=== PATIENT | female | born 1940 | race Caucasian/White ===

== ENCOUNTER 2024-02-27 10:23 | Inpatient (IN) ==
--- NOTE | 2024-02-15 08:41 | PAT Medication Instructions ---
Medication Instructions Date of Service February 15, 2024 Home Medications acetaminophen 325 mg tablet 325 mg PO QID PRN Pain albuterol sulfate 90 mcg/actuation aerosol inhaler 2 puff inhalation QID PRN sob amlodipine 5 mg tablet 5 mg PO QPM cyanocobalamin (vitamin B-12) 1,000 mcg tablet (Vitamin B-12) 1,000 mcg PO DAILY lactobacillus combination no.4 3 billion cell capsule (Probiotic) 3,000 mmu cells PO DAILY olmesartan 40 mg tablet 40 mg PO QAM DO NOT take the morning of surgery cyanocobalamin (vitamin B-12) 1,000 mcg tablet (Vitamin B-12) 1,000 mcg PO DAILY lactobacillus combination no.4 3 billion cell capsule (Probiotic) 3,000 mmu cells PO DAILY olmesartan 40 mg tablet 40 mg PO QAM Take morning of surgery With a small sip of water, OTHERWISE NOTHING TO EAT OR DRINK AFTER MIDNIGHT: acetaminophen 325 mg tablet 325 mg PO QID PRN Pain (if needed) albuterol sulfate 90 mcg/actuation aerosol inhaler 2 puff inhalation QID PRN sob (use if needed; please bring rescue inhaler with you to hospital day of surgery if possible) Take evening before surgery acetaminophen 325 mg tablet 325 mg PO QID PRN Pain (if needed) albuterol sulfate 90 mcg/actuation aerosol inhaler 2 puff inhalation QID PRN sob (if needed) amlodipine 5 mg tablet 5 mg PO QPM Other Notes If you have any questions please call us at [phone] or [phone] or [phone] or [phone]
--- NOTE | 2024-02-20 09:54 | Anesthesiology Consultation ---
Date of Service February 20, 2024 Assessment & Plan (1) Encounter for pre-operative examination: - awaiting surgeon ordered medical clearance (Dr. Alfred Kang). Chart Review Chart Review: Pending: Refer to Additional Notes / Consult section and Patient seen in Pre Admission Testing Teaching & Discussion Pre-Anesthesia Teaching/Discussion Notes: Instructed NPO after midnight before surgery, except medications with 15 cc of water. Medication instructions provided according to the PAT guidelines. History Surgery Operation Date: 02/27/24 12:25 Proposed Procedures p L3-L5 Decompression and Fusion, Spinal Cord Monitoring - Juan Patel DO Height/Weight Height: 5 ft 5.5 in Weight: 62.9 kg Allergies Allergy/AdvReac Type Severity Reaction Status Date / Time codeine Allergy Severe RESP Verified 02/15/24 07:35 DISTRESS HIVES tramadol Allergy Unknown Itching Verified 02/15/24 07:35 IV contrast dye Allergy Unknown tongue/lip Uncoded 02/15/24 08:21 numbness Medications Home Medications Medication Instructions Recorded Confirmed Last Taken acetaminophen 325 mg tablet 325 mg PO QID PRN Pain 02/15/24 02/15/24 Unknown albuterol sulfate 90 mcg/actuation 2 puff inhalation QID PRN sob 02/15/24 02/15/24 Unknown aerosol inhaler amlodipine 5 mg tablet 5 mg PO QPM 02/15/24 02/15/24 Unknown cyanocobalamin (vitamin B-12) 1,000 mcg PO DAILY 02/15/24 02/15/24 Unknown 1,000 mcg tablet (Vitamin B-12) lactobacillus combination no.4 3 3,000 mmu cells PO DAILY 02/15/24 02/15/24 Unknown billion cell capsule (Probiotic) olmesartan 40 mg tablet 40 mg PO QAM 02/15/24 02/15/24 Unknown cholecalciferol (vitamin D3) 25 25 mcg PO QPM 02/20/24 02/20/24 Unknown mcg (1,000 unit) tablet (Vitamin D3) Additional Notes: Patient was advised she can continue Vitamin D3 supplement as advised by surgeon's office. She denied additional medications or supplements. Past Medical History Medical History (Updated 02/20/24 @ 10:53 by Ariadna Jacobson PA-C) Atrial septal aneurysm reported on 2018 echo COPD (chronic obstructive pulmonary disease) mild; very rare use of rescue inhaler GERD (gastroesophageal reflux disease) controlled, stable per pt Hearing loss HTN (hypertension) controlled, stable per pt Hx of deep venous thrombosis (2012) left calf; treated w/ blood thinners Patient denies h/o stroke, seizures, heart attack, heart failure, DM, or blood transfusions. Exercise / Class Metabolic Activity II 4-5 Yardwork/Stairs/Walk up hill (denies chest discomfort or shortness of breath with one flight of stairs) Past Surgical History Surgical History Hx of appendectomy (08/2009) Hx of bilateral cataract extraction Hx of cervical spine surgery full ROM Hx of colonoscopy Past Anesthesia History No Hx of Anesthesia Complications and No Family Hx of Anesthesia Complications History of PONV No Hx of PONV and No Hx of Motion Sickness Social History Smoking Status: Never smoker Do You Dip or Chew Tobacco: No Hx Alcohol Use: No Hx Substance Use: No substance use type: does not use Review of Systems Patient denies chest pain, shortness of breath, dyspnea on exertion, snoring, witnessed apneas, fever, chills, cough, wheezing, or palpitations. Physical Exam Vital Signs Vitals BP 129/79 P 72 TEMP 97.9 SP02 94% on RA RESP 18 Physical Patient resting comfortably in chair in no acute distress, alert and oriented, responding appropriately throughout visit Full cervical extension range of motion without pain TMD < 3 finger breadths Mallampati Score 3 Dentition: lower partial removable, denies chipped or loose teeth, caps/crowns, implants or bridges Lungs: normal respiratory effort. Good air movement, clear throughout to auscultation, no adventitious breath sounds Cardiac: regular rate and rhythm, no murmurs noted Carotid arteries: negative bruit bilat Lab Results Anesthesia Preop Results Results Anesthesia Widget: WBC 7.38 K/ul (4.8-10.8) 02/20/24 Hgb 13.5 g/dl (12.0-16.0) 02/20/24 Hct 41.8 % (37.0-47.0) 02/20/24 Plt 268 K/uL (130-400) 02/20/24 Na 138 mmol/L (136-145) 02/20/24 K 4.4 mmol/L (3.5-5.1) 02/20/24 Cl 104 mmol/L (98-107) 02/20/24 CO2 27 mmol/L (21-32) 02/20/24 BUN 27 mg/dl (6-23) H 02/20/24 Creat 1.12 mg/dl (0.6-1.2) 02/20/24 Glucose Level 91 mg/dl (70-99(Fasting)) 02/20/24 PT 10.4 Seconds (9.0-12.0) 02/20/24 PTT 30 Seconds (21-31) 02/20/24 INR 1.0 (0.9-1.1) 02/20/24 HA1c 5.9 % (4.5-5.6) H 02/20/24 Urine Color Yellow 02/20/24 Urine Appearance Cloudy (Clear) A 02/20/24 Urine pH 6.5 (4.5-7.5) 02/20/24 Urine Specific Adrian 1.007 (1.000-1.030) 02/20/24 Urine Protein Negative (Negative) 02/20/24 Urine Glucose (UA) Negative (Negative) 02/20/24 Urine Ketones Negative (Negative) 02/20/24 Urine Blood Negative (Negative) 02/20/24 Urine Nitrite Negative (Negative) 02/20/24 Urine Bilirubin Negative (Negative) 02/20/24 Urine Urobilinogen Negative (Negative) 02/20/24 Urine Leukocyte Esterase 1+ (Negative) H 02/20/24 Urine WBC (Auto) 0-5 /hpf (0-5) 02/20/24 Urine RBC (Auto) 0-2 /hpf (0-2) 02/20/24 Urine Hyaline Casts (Auto) 0-2 /lpf (0-2) 02/20/24 Urine Epithelial Cells (Auto) 0-2 /hpf (0-2) 02/20/24 Urine Bacteria (Auto) None Seen (None Seen) 02/20/24 Blood Type O Positive 02/20/24 Antibody Screen NEGATIVE 02/20/24 Testing Electrocardiogram Date: 02/20/24 NSR, rate 70 bpm Left anterior fascicular block Minimal voltage criteria for LVH, may be normal variant Chest X-Ray Date: 02/20/24 No acute chest disease. Echocardiogram Date: 03/05/19 EF 50-54% Grade I diastolic dysfunction Mild aortic valve sclerosis, no aortic stenosis Mild mitral annular calcification Mildly enlarged proximal ascending thoracic aorta There is an atrial septal aneurysm, interatrial septum is intact without interatrial shunt, atrial septal defect or patent foramen ovale No significant changes when compared to prior study from 2018
[2024-02-27] MEDS ORDERED: LIDOCAINE 2% 2 ML VIAL/AMP(20MG/ML) INFIL ONE (10:57)
[2024-02-27] MEDS ORDERED: ONDANSETRON INJ 2 MG/ML 2 ML VIAL ONE (10:57)
[2024-02-27] MEDS ORDERED: PROPOFOL IV EMULSION 10 MG/ML 20 ML VIAL IV ONE (10:57)
[2024-02-27] MEDS ORDERED: DEXAMETHASONE SOD INJ 4 MG/ML VIAL ONE (10:57)
[2024-02-27] MEDS ORDERED: fentaNYL citrate PF 100 MCG/2 ML VIAL ONE ×2 (10:58→13:01)
[2024-02-27] MEDS ORDERED: ROCURONIUM BROMIDE 10 MG/ML 5 ML VIAL IV ONE (10:58)
[2024-02-27] MEDS: LR 60ML/HR IV SCH (11:00)
[2024-02-27] MEDS: GABAPENTIN 300 MG CAP PO SCH (11:00)
[2024-02-27] MEDS: LR 15ML/HR IV SCH (11:00)
[2024-02-27] MEDS: CeleBREX 200 MG CAP PO SCH (11:00)
[2024-02-27] MEDS ORDERED: ATROPINE SULFATE 0.1 MG/ML 10ML SYR IV PRN (11:36)
[2024-02-27] MEDS ORDERED: ePHEDrine sulfate 50 MG/ML AMP IV PRN (11:36)
[2024-02-27] MEDS ORDERED: ONDANSETRON INJ 2 MG/ML 2 ML VIAL IV PRN ×2 (11:36→16:34)
--- NOTE | 2024-02-27 11:36 | Anesthesiology Consultation ---
Date of Service February 27, 2024 Assessment & Plan ASA ASA3 Proposed Anesthesia Anesthesia Type: General Risk / Benefits Reviewed With: PT / POA / Parent / Guardian, Accepts Plan and Informed Consent Obtained History Surgery Operation Date: 02/27/24 12:10 Proposed Procedures p L3-L5 Decompression and Fusion, Spinal Cord Monitoring - Juan Patel DO Height/Weight Height: 5 ft 5.5 in Weight: 61.9 kg Allergies Allergy/AdvReac Type Severity Reaction Status Date / Time codeine Allergy Severe RESP Verified 02/27/24 10:54 DISTRESS HIVES tramadol Allergy Unknown Itching Verified 02/27/24 10:54 IV contrast dye Allergy Unknown tongue/lip Uncoded 02/27/24 10:54 numbness Medications Home Medications Medication Instructions Recorded Confirmed Last Taken acetaminophen 325 mg tablet 325 mg PO QID PRN Pain 02/15/24 02/27/24 02/26/24 14:30 albuterol sulfate 90 mcg/actuation 2 puff inhalation QID PRN sob 02/15/24 02/27/24 Unknown aerosol inhaler amlodipine 5 mg tablet 5 mg PO QPM 02/15/24 02/27/24 02/26/24 14:30 cyanocobalamin (vitamin B-12) 1,000 mcg PO DAILY 02/15/24 02/27/24 02/26/24 14:30 1,000 mcg tablet (Vitamin B-12) lactobacillus combination no.4 3 3,000 mmu cells PO DAILY 02/15/24 02/27/24 02/26/24 08:00 billion cell capsule (Probiotic) olmesartan 40 mg tablet 40 mg PO QAM 02/15/24 02/27/24 02/27/24 05:00 cholecalciferol (vitamin D3) 25 25 mcg PO QPM 02/20/24 02/27/24 02/26/24 14:30 mcg (1,000 unit) tablet (Vitamin D3) Active Medications Generic Name Dose Route Start Last Admin Trade Name Freq PRN Reason Stop Dose Admin Celecoxib 200 mg 02/27/24 06:00 02/27/24 11:00 Celebrex 200 Mg Cap PO 02/27/24 18:00 200 mg PREOP HOLLY Administration Gabapentin 300 mg 02/27/24 06:00 02/27/24 11:00 Gabapentin 300 Mg Cap PO 02/27/24 18:00 300 mg PREOP HOLLY Administration Lactated Ringer's 1,000 mls @ 15 mls/hr 02/27/24 06:00 02/27/24 11:00 Lr IV 02/28/24 05:59 15 mls/hr .Q24H HOLLY Administration Lactated Ringer's 1,000 mls @ 60 mls/hr 02/27/24 06:00 02/27/24 11:00 Lr IV 02/27/24 22:39 Not Given .[id number] HOLLY NPO Date Last Intake of Fluids: 02/26/24 Time Last Intake of Fluids: 16:45 Date Last Intake of Solids: 02/26/24 Time Last Intake of Solids: 16:45 Past Medical History Medical History (Updated 02/20/24 @ 10:53 by Ariadna Jacobson PA-C) Atrial septal aneurysm reported on 2018 echo GERD (gastroesophageal reflux disease) controlled, stable per pt Hearing loss Hx of deep venous thrombosis (2012) left calf; treated w/ blood thinners COPD (chronic obstructive pulmonary disease) mild; very rare use of rescue inhaler HTN (hypertension) controlled, stable per pt Exercise / Class Metabolic Activity II 4-5 Yardwork/Stairs/Walk up hill (denies chest discomfort or shortness of breath with one flight of stairs) Past Surgical History Surgical History Hx of bilateral cataract extraction Hx of colonoscopy Hx of cervical spine surgery full ROM Hx of appendectomy (08/2009) Past Anesthesia History No Hx of Anesthesia Complications and No Family Hx of Anesthesia Complications History of PONV No Hx of PONV and No Hx of Motion Sickness Social History Smoking Status: Never smoker Do You Dip or Chew Tobacco: No Hx Alcohol Use: No Hx Substance Use: No substance use type: does not use Physical Exam Vital Signs Last Vital Signs Temp 36.5 C 02/27/24 10:47 Pulse 86 02/27/24 10:47 Resp 20 02/27/24 10:47 BP 143/84 H 02/27/24 10:47 Pulse Ox 94 02/27/24 10:47 O2 Del Method Room Air 02/27/24 10:47 Constitutional no acute distress ENMT Mouth: no dentition abnormality Thyromental Distance: > or= 3.5 Finger Breadths Mallampati Class: II Neck normal visual inspection Respiratory normal respiratory effort; no respiratory distress Auscultation: lungs clear to auscultation bilaterally Cardiovascular Rate/Rhythm: regular rate and regular rhythm Heart Sounds: no murmur Musculoskeletal Spine: normal cervical ROM Psychiatric Orientation: alert and oriented x 3 Testing Electrocardiogram Date: 02/20/24 NSR, rate 70 bpm Left anterior fascicular block Minimal voltage criteria for LVH, may be normal variant Chest X-Ray Date: 02/20/24 No acute chest disease. Echocardiogram Date: 03/05/19 EF 50-54% Grade I diastolic dysfunction Mild aortic valve sclerosis, no aortic stenosis Mild mitral annular calcification Mildly enlarged proximal ascending thoracic aorta There is an atrial septal aneurysm, interatrial septum is intact without interatrial shunt, atrial septal defect or patent foramen ovale No significant changes when compared to prior study from 2018 Day of Procedure Evaluation. Date of Surgery February 27, 2024 Height/Weight Height: 5 ft 5.5 in Weight: 61.9 kg Vital Signs Last Vital Signs Temp 36.5 C 02/27/24 10:47 Pulse 86 02/27/24 10:47 Resp 20 02/27/24 10:47 BP 143/84 H 02/27/24 10:47 Pulse Ox 94 02/27/24 10:47 O2 Del Method Room Air 02/27/24 10:47 Allergies Allergy/AdvReac Type Severity Reaction Status Date / Time codeine Allergy Severe RESP Verified 02/27/24 10:54 DISTRESS HIVES tramadol Allergy Unknown Itching Verified 02/27/24 10:54 IV contrast dye Allergy Unknown tongue/lip Uncoded 02/27/24 10:54 numbness Medications Home Medications Medication Instructions Recorded Confirmed Last Taken acetaminophen 325 mg tablet 325 mg PO QID PRN Pain 02/15/24 02/27/24 02/26/24 14:30 albuterol sulfate 90 mcg/actuation 2 puff inhalation QID PRN sob 02/15/24 02/27/24 Unknown aerosol inhaler amlodipine 5 mg tablet 5 mg PO QPM 02/15/24 02/27/24 02/26/24 14:30 cyanocobalamin (vitamin B-12) 1,000 mcg PO DAILY 02/15/24 02/27/24 02/26/24 14:30 1,000 mcg tablet (Vitamin B-12) lactobacillus combination no.4 3 3,000 mmu cells PO DAILY 02/15/24 02/27/24 02/26/24 08:00 billion cell capsule (Probiotic) olmesartan 40 mg tablet 40 mg PO QAM 02/15/24 02/27/24 02/27/24 05:00 cholecalciferol (vitamin D3) 25 25 mcg PO QPM 02/20/24 02/27/24 02/26/24 14:30 mcg (1,000 unit) tablet (Vitamin D3) Active Medications Generic Name Dose Route Start Last Admin Trade Name Stewart PRN Reason Stop Dose Admin Celecoxib 200 mg 02/27/24 06:00 02/27/24 11:00 Celebrex 200 Mg Cap PO 02/27/24 18:00 200 mg PREOP HOLLY Administration Gabapentin 300 mg 02/27/24 06:00 02/27/24 11:00 Gabapentin 300 Mg Cap PO 02/27/24 18:00 300 mg PREOP HOLLY Administration Lactated Ringer's 1,000 mls @ 15 mls/hr 02/27/24 06:00 02/27/24 11:00 Lr IV 02/28/24 05:59 15 mls/hr .Q24H HOLLY Administration Lactated Ringer's 1,000 mls @ 60 mls/hr 02/27/24 06:00 02/27/24 11:00 Lr IV 02/27/24 22:39 Not Given .[id number] HOLLY Past Anesthesia History No Hx of Anesthesia Complications and No Family Hx of Anesthesia Complications History of PONV No Hx of PONV and No Hx of Motion Sickness NPO Date Last Intake of Fluids: 02/26/24 Time Last Intake of Fluids: 16:45 Date Last Intake of Solids: 02/26/24 Time Last Intake of Solids: 16:45 Home Medications Home Medications Medication Instructions Recorded Confirmed Last Taken acetaminophen 325 mg tablet 325 mg PO QID PRN Pain 02/15/24 02/27/24 02/26/24 14:30 albuterol sulfate 90 mcg/actuation 2 puff inhalation QID PRN sob 02/15/24 02/27/24 Unknown aerosol inhaler amlodipine 5 mg tablet 5 mg PO QPM 02/15/24 02/27/24 02/26/24 14:30 cyanocobalamin (vitamin B-12) 1,000 mcg PO DAILY 02/15/24 02/27/2424 14:30 1,000 mcg tablet (Vitamin B-12) lactobacillus combination no.4 3 3,000 mmu cells PO DAILY 02/15/24 02/27/24 02/26/24 08:00 billion cell capsule (Probiotic) olmesartan 40 mg tablet 40 mg PO QAM 02/15/24 02/27/24 02/27/24 05:00 cholecalciferol (vitamin D3) 25 25 mcg PO QPM 02/20/24 02/27/24 02/26/24 14:30 mcg (1,000 unit) tablet (Vitamin D3) Active Medications Generic Name Dose Route Start Last Admin Trade Name Freq PRN Reason Stop Dose Admin Celecoxib 200 mg 02/27/24 06:00 02/27/24 11:00 Celebrex 200 Mg Cap PO 02/27/24 18:00 200 mg PREOP HOLLY Administration Gabapentin 300 mg 02/27/24 06:00 02/27/24 11:00 Gabapentin 300 Mg Cap PO 02/27/24 18:00 300 mg PREOP HOLLY Administration Lactated Ringer's 1,000 mls @ 15 mls/hr 02/27/24 06:00 02/27/24 11:00 Lr IV 02/28/24 05:59 15 mls/hr .Q24H HOLLY Administration Lactated Ringer's 1,000 mls @ 60 mls/hr 02/27/24 06:00 02/27/24 11:00 Lr IV 02/27/24 22:39 Not Given .[id number] HOLLY Exercise / Class Metabolic Activity Metabolic Activity: II 4-5 Yardwork/Stairs/Walk up hill (denies chest discomfort or shortness of breath with one flight of stairs) Physical Exam Constitutional: no acute distress Mouth: no dentition abnormality Thyromental Distance: > or= 3.5 Finger Breadths Mallampati Class: II Neck: + visual inspection normal Respiratory: + respiratory effort normal and + clear to auscultation bilaterally; no respiratory distress Cardiovascular: + regular rate and + regular rhythm; no murmur Musculoskeletal: no limited cervical ROM Psychiatric: + alert and + oriented x 3 ASA ASA3 Proposed Anesthesia Proposed Anesthesia: General Risk / Benefits Reviewed With: PT / POA / Parent / Guardian, Accepts Plan and Informed Consent Obtained
--- NOTE | 2024-02-27 12:13 | History & Physical Bridge Note ---
Date of Service February 27, 2024 History & Physical Bridge Note I have examined the patient, reviewed the History & Physical and in the interval since the performance of the History & Physical I have noted the following changes of clinical significance: no changes noted
--- NOTE | 2024-02-27 12:14 | History & Physical Report ---
Date of Service February 27, 2024 Assessment & Plan (1) Neurogenic claudication due to lumbar spinal stenosis: Plan: L3-L5 decompression and fusion History of Present Illness Chief Complaint: Back and leg pain Primary Care Provider: Alfred Kang DO This is an 84-year-old female well-known to me the presents with chronic persistent back and leg pain after failed extensive course of nonoperative care is here for surgical intervention. Allergies Allergy/AdvReac Type Severity Reaction Status Date / Time codeine Allergy Severe RESP Verified 02/27/24 10:54 DISTRESS HIVES tramadol Allergy Unknown Itching Verified 02/27/24 10:54 IV contrast dye Allergy Unknown tongue/lip Uncoded 02/27/24 10:54 numbness Home Medications Medication Instructions Recorded Confirmed Type acetaminophen 325 mg tablet 325 mg PO QID PRN Pain 02/15/24 02/27/24 History albuterol sulfate 90 mcg/actuation 2 puff inhalation QID PRN sob 02/15/24 02/27/24 History aerosol inhaler amlodipine 5 mg tablet 5 mg PO QPM 02/15/24 02/27/24 History cyanocobalamin (vitamin B-12) 1,000 mcg PO DAILY 02/15/24 02/27/24 History 1,000 mcg tablet (Vitamin B-12) lactobacillus combination no.4 3 3,000 mmu cells PO DAILY 02/15/24 02/27/24 History billion cell capsule (Probiotic) olmesartan 40 mg tablet 40 mg PO QAM 02/15/24 02/27/24 History cholecalciferol (vitamin D3) 25 25 mcg PO QPM 02/20/24 02/27/24 History mcg (1,000 unit) tablet (Vitamin D3) Past Med/Surg History Problem List (Updated 02/27/24 @ 12:13 by Juan Patel DO) Neurogenic claudication due to lumbar spinal stenosis Encounter for pre-operative examination Medical History (Updated 02/27/24 @ 12:13 by Juan Patel DO) Atrial septal aneurysm reported on 2018 echo GERD (gastroesophageal reflux disease) controlled, stable per pt Hearing loss Hx of deep venous thrombosis (2012) left calf; treated w/ blood thinners COPD (chronic obstructive pulmonary disease) mild; very rare use of rescue inhaler HTN (hypertension) controlled, stable per pt Surgical History Hx of bilateral cataract extraction Hx of colonoscopy Hx of cervical spine surgery full ROM Hx of appendectomy (08/2009) Social History Smoking Status: Never smoker Second Hand Exposure: Yes (family smoked growing up); Do You Dip or Chew Tobacco: No; Tobacco Cessation Education Requested by Patient: No Hx Alcohol Use: No Hx Substance Use: No Preferred Language: Irish Communication Ability: Effective Papier Mache' Molder Required: No Beliefs That Will Affect Care: None Current Living Situation: Spouse Other Information That Helps Us Care for You: No Feels Safe at Home: Yes Safety Concerns: Feels Safe At This Time Assistive Devices: Denture - Upper, Denture - Lower and Glasses Assistive Devices Comment: partial Physical Exam Physical Exam: Patient is alert and oriented heart regular in rhythm lungs clear Results & Data Results & Data Vital Signs (Past 12 Hours) Vital Signs Temp Pulse Resp BP Pulse Ox O2 Del Method 02/27/24 10:47 36.5 C 86 20 143/84 H 94 Room Air
[2024-02-27] MEDS: ceFAZolin 2000MG 2,000 MG/15 ML SYR IV SCH (12:44)
[2024-02-27] MEDS ORDERED: ACETAMINOPHEN 1000 MG/100 ML IV IV ONE (13:05)
[2024-02-27] MEDS ORDERED: SUGAMMADEX SODIUM 200 MG/2 ML VIAL IV ONE (13:19)
[2024-02-27] MEDS: ceFAZolin 330 MG/ML 1 GM VIAL ONE (13:20)
[2024-02-27] MEDS: BUPIVACAINE/EPINEPHRINE 0.25% 1:200,000 30 ML VIAL ONE (13:20)
[2024-02-27] MEDS ORDERED: ePHEDrine sulfate 50 MG/ML AMP ONE (13:27)
[2024-02-27] MEDS ORDERED: SODIUM CHLORIDE 0.9% PF INJ 10 ML VIAL ONE (13:27)
[2024-02-27] MEDS: FLOSEAL HEMOSTATIC MATRIX 10ML TOP ONE (14:15)
--- NOTE | 2024-02-27 14:22 | Operative Report ---
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 #3 placed posterior instrumentation L3 L5. #4 interbody fusion L3-L4 L4-5 #5 placement spiral 12 x 26 mm at L3-L4 and 11 x 26 mm at L4-5 #6 placement locally harvested morselized autograft posterior gutters per #7 placement of infuse collagen sponge combined with Koros in the posterior lateral gutters and Morpheus bone graft in the interbody space. Surgeon Juan Patel, Director Of Maternity Services Rachel Abdalla Estimated Blood Loss 50 Findings Consistent with Post-Op Diagnosis Specimens None Indications This is an 84-year-old female who presents problems diagnosis and failed course of nonoperative care she is here for surgical invention. Description of Procedure Patient was met with identified informed consent obtained. Patient was then taken to the operative suite underwent ablation placed in a prone position on th e Joesph table on top of the David frame. All bony prominences well-padded eyes inspected to ensure no external precipice upon them. This point the lumbar spine was prepped and draped in a sterile fashion. Sharp dissection with assistance of Bovie cautery was performed down to and exposing the lamina and transverse processes of L3-L4-L5 bilaterally. From a caudal assessment fashion complete laminectomy of L4 was performed including bilateral medial facetectomies and foraminotomies addressing severe spinal stenosis. Then performed a complete laminectomy of L3 with bilateral medial facetectomies and foraminotomies again addressing severe spinal stenosis. Lastly was partial laminectomy of L2 with bilateral medial facetectomies addressing significant subarticular stenosis. Pedicle screws were then placed in L3-L4-L5 bilaterally with the assistance of fluoroscopy and proper size brien placed. By way of transforaminal approach on the right a complete discectomy of L4-5 was performed endplates corrected to subcortical bleeding bone and 11 x 26 mm spiral cage filled with Morpheus bone graft tapped in position. Then proceeded to L3 [address] and again by way of transforaminal approach and right complete discectomy performed endplates guided to subcortical bleeding bone and a 12 x 26 mm spiral cage filled with Morpheus bone graft tapped in position. The rods were then compressed locked in final position bilaterally. The transverse processes of L3 L4-5 burred to subcortical bleeding bone. Infuse collagen sponge, with Koros and local autograft placed in the posterior lateral gutters. 15 round ROVERTO inserted. The incision was then closed with 1 Vicryl the fascia 2-0 Vicryl subcutaneously and 4 Monocryl for final skin closure. Steri-Strips sterile dressing placed. Patient waken taken to PACU stable condition. Please note spinal cord monitoring was utilized at the procedure and no changes noted. Rachel Abdalla was present at the entire surgeon while the patient positioning complex portions of the surgery and final skin closure. Im ordering 20 grams of Triple [place] Collagen Powder ([employer] [id number]) to treat an incision wound that was caused by a spine procedure. The incision is approximately 2 cm(W) x 4 cm(L) into the joint (D) in size and is a full thickness wound. Triple [place] collagen comes in 1 gram packets so 20 packets were ordered. Given the size of the wound, with light to moderate exudate I chose to order a 20 day supply. The patient will be provided instructions for proper application of the collagen wound kit. The patient will be asked to apply the collagen powder daily and then cover it with sterile dressings dispensed. Collagen was selected as I expect the collagen to attract monocytes and fibroblasts, act as a sacrificial substrate for MMPs, and ultimately proved a matrix for tissue and vessel growth. The collagen will act as a primary dressing in this scenario. It is medically necessary for proper healing of these wounds to improve bioavailability and contact with each wound surface, this is also to help prevent infection of wounds and promote healing ultimately leading to a better healing outcome and limit the risk of infection. I attest to the content of the Intraoperative Record and any orders documented therein. Any exceptions are noted below.
--- NOTE | 2024-02-27 14:28 | Fluoroscopy Report ---
INTRAOPERATIVE RADIOGRAPHS CLINICAL HISTORY: L3-L4 spinal fusion. Fluoro time: 22 seconds Ka,r: 11.57 mGy FINDINGS: 2 spot fluoroscopic views of the lumbar spine are presented. There has been discectomy at L 3-L4 and L4-L5 with laminectomy and posterior fusion at L3-L5. Interpedicular screws are present at a ll levels. The orthopedic hardware appears intact. IMPRESSION: Intraoperative images from lumbar spinal fusion surgery as above. Electronically signed by: Mendoza Gomez M.D. 02/27/2024 2:27 PM
[2024-02-27] MEDS: HYDROmorphone INJ 1 MG/ML SYRINGE IV PRN (14:45)
--- NOTE | 2024-02-27 15:35 | Anesthesiology Progress Note ---
Date of Service February 27, 2024 Anesthesia Post Procedure Vital Signs Vital Signs: Temp Pulse Pulse Resp BP Pulse Ox O2 Del Method 02/27/24 15:25 93 H 22 139/76 97 Nasal Cannula 02/27/24 15:15 90 13 134/78 92 Oxymask 02/27/24 15:05 93 H 14 136/72 96 Oxymask 02/27/24 14:55 93 H 18 141/76 H 95 Oxymask 02/27/24 14:45 99 H 18 158/79 H 98 Oxymask 02/27/24 14:36 36.3 C L 112 H 16 172/80 H 99 Oxymask 02/27/24 10:47 36.5 C 86 20 143/84 H 94 Room Air O2 Flow Rate 02/27/24 15:25 3 02/27/24 15:15 4 02/27/24 15:05 3 02/27/24 14:55 3 02/27/24 14:45 6 02/27/24 14:36 6 02/27/24 10:47 Pain Intensity Bilateral Back: Pain Intensity: 5 Transfer of Care Handoff Completed per policy Notes Mental Status: alert / awake / arousable Patient Amnestic to Procedure: Yes Nausea / Vomiting: adequately controlled Pain: adequately controlled Airway Patency, RR, SpO2: stable & adequate BP & HR: stable & adequate Hydration State: stable & adequate Anesthetic Complications: no major complications apparent and Pt Satisfied with anesthetic care
[2024-02-27] MEDS ORDERED: FAMOTIDINE 20 MG TAB PO PRN (16:34)
[2024-02-27] MEDS ORDERED: PROMETHAZINE HCL 12.5 MG in SODIUM CHLORIDE 0.9% 50 ML IV PRN (16:34)
[2024-02-27] MEDS ORDERED: LORazepam 0.5 MG in SYRINGE 0.25 ML IV PRN (16:34)
[2024-02-27] MEDS ORDERED: HYDROmorphone INJ 0.5 MG/0.5 ML SYR IV PRN (16:34)
[2024-02-27] MEDS ORDERED: ALUMINUM/MAGNESIUM SUSP 30 ML UDC PO PRN (16:34)
[2024-02-27] MEDS ORDERED: SOD PHOSPHATE/SOD BIPHOSPHATE ENEMA 132 ML BTL PR PRN (16:34)
[2024-02-27] MEDS ORDERED: MAGNESIUM HYDROXIDE SUSP 30 ML UDC PO PRN (16:34)
[2024-02-27] MEDS ORDERED: DO NOT ADMINISTER FLU VACCINE PRN (16:34)
[2024-02-27] MEDS ORDERED: NALOXONE HCL 0.4 MG/1 ML VIAL/CARP IV PRN (16:34)
[2024-02-27] MEDS ORDERED: LORazepam 0.5 MG TAB PO PRN (16:34)
[2024-02-27] MEDS ORDERED: bisacodyL 10 MG SUPP PR PRN (16:34)
[2024-02-27] MEDS ORDERED: ACETAMINOPHEN 500 MG TAB PO PRN (16:34)
[2024-02-27] MEDS ORDERED: ONDANSETRON 4 MG OD TAB PO PRN (16:34)
[2024-02-27] MEDS ORDERED: diphenhydrAMINE Capsule 25 MG CAP PO PRN (16:34)
[2024-02-27] MEDS ORDERED: hydrOXYzine HCl 25 MG TAB PO PRN (16:34)
[2024-02-27] MEDS ORDERED: DO NOT ADMINISTER PNEUMOCOCCAL VACCINE PRN (16:34)
[2024-02-27] MEDS ORDERED: METOCLOPRAMIDE HCL INJ 5 MG/ML 2 ML VIAL IV PRN (16:34)
[2024-02-27] MEDS ORDERED: HYDROmorphone INJ 1 MG/ML SYRINGE IV PRN (16:34)
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
[2024-02-27] MEDS: LACTATED RINGER'S 1,000 ML IV SCH (17:02)
[2024-02-27] MEDS: ACETAMINOPHEN 1,000 MG/100 ML VIAL IV PRN (19:52)
[2024-02-27] MEDS: amLODIPine BESYLATE 5 MG TAB PO SCH (21:55)
[2024-02-27] MEDS: ceFAZolin 1000MG 1,000 MG/7.5 ML SYR IV SCH (21:55)
[2024-02-27] MEDS: CHOLECALCIFEROL 25 MCG (1000 UNITS) TAB PO SCH (21:55)
[2024-02-27] MEDS: DOCUSATE SODIUM/SENNA 50/8.6MG TAB PO SCH (21:55)
[2024-02-28] MEDS: HYDROCODONE/ACETAMOPHEN 5/325MG TAB PO PRN (01:34)
[2024-02-28] MEDS: POLYETHYLENE (MIRALAX) 17 GM PACK PO SCH (05:52)
[2024-02-28 06:37] LABS: Basophils # (auto) 0.03 K/uL (0.00-0.20); Basophils % (auto) 0.2 %; Eosinophils # (auto) 0.01 K/uL (0.00-0.50); Eosinophils % (auto) 0.1 %; Hematocrit (blood only) 35.1 % (37.0-47.0); Hemoglobin 11.1 g/dl (12.0-16.0); Immature Granulocytes # (auto) 0.07 K/uL (0.01-0.20); Immature Granulocytes % (auto) 0.5 %; Lymphocytes # (auto) 1.39 K/uL (1.20-3.40); Lymphocytes % (auto) 9.7 %; Mean Corpuscular Hemoglobin 29.9 pg (25.0-34.0); Mean Corpuscular Hgb Conc 31.6 g/dL (32.0-36.0); Mean Corpuscular Volume 94.6 fL (80.0-100.0); Mean Platelet Volume 9.4 fL (9.4-12.4); Monocytes # (auto) 1.04 K/uL (0.11-0.59); Monocytes % (auto) 7.3 %; Neutrophils # (auto) 11.79 K/uL (1.40-6.50); Neutrophils % (auto) 82.2 %; Platelet Count 241 K/uL (130-400); RDW Coefficient of Variation 13.3 % (11.5-14.5); RDW Standard Deviation 45.8 fL (36.4-46.3); Red Blood Count 3.71 M/uL (4.20-5.40); White Blood Count 14.33 K/ul (4.8-10.8)
[2024-02-28 06:57] LABS: Calcium 8.6 mg/dl (8.6-10.3); Creatinine Clr Calc Pharmacy 30.3 ml/min; Est GFR (African American) 44.9 ml/min; Est GFR (Non-African American) 38.7 ml/min; Potassium 4.6 mmol/L (3.5-5.1)
[2024-02-28] MEDS ORDERED: PROMETHAZINE 12.5 MG/50.5 ML BAG IV PRN (07:05)
[2024-02-28] MEDS: dexAMETHasone 4 MG in SYRINGE 0 ML IV SCH (08:07)
[2024-02-28] MEDS: CYANOCOBALAMIN (B-12) 500 MCG TABLET PO SCH (08:11)
[2024-02-28] MEDS: LACTOBACILLUS ACIDOPHILUS 1 GM PACK PO SCH (08:12)
[2024-02-28] MEDS: LOSARTAN POTASSIUM 50 MG TAB PO SCH (08:12)
--- NOTE | 2024-02-28 08:12 | Hospitalist Progress Note ---
<Statement entered by Phillip Connolly, DO - 02/28/24 13:39> I have seen and examined the patient and have discussed the case with the provider above. I have reviewed the advanced practitioner's documentation, and I agree with, and take responsibility for that plan of care. 10 minutes spent at bedside. Patient really denies feeling short of breath but still having some oxygen requirement. 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 Patel on 02/26. Neurogenic Claudication 2/2 Lumbar Spinal Stenosis S/P Lumbar Spine Operation POD#1 s/p L3-L5 decompression & fusion with Dr. Patel. EBL: 50mL & Pre-Operative Hgb: 13.5 [02/20/24] Hgb downtrended to 11.1 (02/27); Will proceed w/ routine anemia work-up in AM. Per ortho for pain control, wound care, anticoagulation and activities. Continue incentive spirometry, PT/OT when appropriate as per ortho team. Monitor H/H for acute blood loss anemia and transfuse blood products PRN. Use of Supplemental Oxygen Support Chronic Obstructive Pulmonary Disease Patient is requiring 2L via NC post-operatively. According to nursing staff, the patient's oxygen sat drops down to ~84-86% on RA. 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 Patient reports she has never smoked herself, but was exposed to second hand smoke inhalation. She is not currently on telemetry, but her oxygen saturation was 94% on 2L via NC while I was in the room. Ordered a routine CXR to r/o any acute pulmonary concerns, however physical exam was benign. CXR showed some right-sided atelectasis and mild pulmonary vascular congestion. Ordered a dose of 40mg IV Lasix. Encouraged patient to use her incentive spirometer every hour. Patient denied any SOB at this time. She occasionally uses an albuterol inhaler at home, but is not on any other respiratory medications. Will keep working to wean down the patient's oxygen requirement slowly. HTN BP has remained stable post-operatively, can continue home medications. History of Atrial Septal Aneurysm Chronic, stable. Echo from 03/05/2019 showed the following: Grade 1 diastolic dysfunction, EF of 50 to 54%, atrial septal aneurysm noted, interarterial septum is intact without interarterial shunt, atrial septal defect or patent foramen ovale. DVT Prophylaxis: SCDs/TEDs - As per primary orthopedic team. Code Status: FULL CODE PCP: Alfred Kang, Disposition: Admitted in Med/Surg * Patient mentioned yesterday that she would like to meet with case management to discuss the potential of obtaining home health services for PT and dressing changes when she is discharged. She lives at home with her . However, he is a official greeter and is gone for long periods of time (sometimes weeks). This makes her very anxious to be at home alone with the concern of potentially not being able to care for herself appropriately. She is against the idea of an inpatient rehabilitation placement upon discharge - she would like to go home. Consult placed for case management to meet with the patient regarding this. Awaiting PT/OT recommendations at this time. We will continue to follow the patient with you during their hospital stay. You can reach a member of the [facility] Hospitalist Team 13/02 via [employer]. Patient seen in collaboration with Dr. Connolly. Please see addendum. I spent a total of 50 minutes coordinating, documenting, and providing care for this patient excluding time spent in the performance of separately billed services. This included personally reviewing all current laboratories and imaging studies, medical reconciliation, outpatient chart review and discussion with specialists. This chart was completed in part utilizing Speech Voice Recognition Software. Grammatical errors, random word insertions, pronoun errors, and incomplete sentences are an occasional consequence of this system due to software limitations, ambient noise, and hardware issues. Any formal questions or concerns about the content, text, or information contained within the body of this dictation should be directly addressed to the provider for clarification. Admission and Anticipated Discharge Date Admission Date: February 27, 2024 Subjective Patient seen and examined at bedside in room E300-1. Reports some mild back pain this morning after physical therapy. Otherwise, has no major concerns at this time. Denies any SOB, chest pain or abdominal pain. She is requiring 2L of supplemental oxygen support post-operatively. Spoke with the patient's nurse, Martha, regarding her oxygen requirement this morning. Patient was not on oxygen support at home prior to arrival. Martha reports that the patient's oxygen saturation dips down to 84-86% on RA. aMrtha also mentions that the ROVERTO drain put out 70cc this morning when she emptied it. Review of Systems Review of Systems: At least ten systems reviewed and negative, except as noted in the HPI. Physical Exam Physical Exam: General: WD/WN, vitals as above, NAD, laying down in bed, pleasant, conversing appropriately. A+Ox3, euthymic affect. HEENT: Normocephalic, atraumatic. PERRL, conjunctivae normal, anicteric sclerae. External ear and nose normal, oropharynx normal. Respiratory: Normal respiratory effort, lungs clear to auscultation. Currently requiring 2L supplemental O2 via NC. Does not wear O2 at home. Cardiovascular: Regular rate, rhythm, no murmur, normal peripheral pulses, no BLE edema. Vessels: No JVD. Abdomen/GI: Normal bowel sounds, soft, nontender, no hepatosplenomegaly. Extremities/Musculoskeletal: No cyanosis or clubbing, extremities motor strength intact, moves all extremities. Neurologic: EOMI, accommodation nl, no face palsy, no dysarthria, CN's II-XI not formally tested but appear grossly intact bilaterally. Skin: No rashes, normal color, warm/dry. Surgical dressing intact, ROVERTO drain x [address] with serosanguineous output. Results & Data Results & Data Vital Signs (Past 12 Hours) Vital Signs Temp Pulse Pulse Resp BP Pulse Ox O2 Del Method 02/28/24 07:59 36.6 C 70 20 119/72 94 Nasal Cannula 02/28/24 07:43 Nasal Cannula 02/28/24 03:00 36.8 C 98 H 16 107/64 93 Nasal Cannula 02/27/24 23:00 36.6 C 80 16 107/66 95 Nasal Cannula 02/27/24 21:50 Nasal Cannula O2 Flow Rate 02/28/24 07:59 2 02/28/24 07:43 2 02/28/24 03:00 2 02/27/24 23:00 2 02/27/24 21:50 2 Laboratory Results Short CBC 02/28/24 Range/Units 06:07 WBC 14.33 H (4.8-10.8) K/ul Hgb 11.1 L (12.0-16.0) g/dl Hct 35.1 L (37.0-47.0) % Plt Count 241 (130-400) K/uL BMP 02/28/24 06:07 Sodium 137 Potassium 4.6 Chloride 105 Carbon Dioxide 25 BUN 28 H Creatinine 1.27 H Glucose 122 H Calcium 8.6 Diagnostic Findings Lumbar Spine X-Ray 02/27/24 12:10 INTRAOPERATIVE RADIOGRAPHS CLINICAL HISTORY: L3-L4 spinal fusion. Fluoro time: 22 seconds Ka,r: 11.57 mGy FINDINGS: 2 spot fluoroscopic views of the lumbar spine are presented. There has been discectomy at L3-L4 and L4-L5 with laminectomy and posterior fusion at L3- L5. Interpedicular screws are present at all levels. The orthopedic hardware appears intact. IMPRESSION: Intraoperative images from lumbar spinal fusion surgery as above. Electronically signed by: Mendoza Gomez M.D. 02/27/2024 2:27 PM Medications Administered Hydrocodone Bitart/Acetaminophen (Hydrocodone/Acetamophen 5/325mg Tab) 1 - 2 tab PO Q4H PRN PRN Reason: Pain & Pre PT Stop: 03/12/24 16:33 Last Admin: 02/28/24 01:34 Dose: 2 tab Documented By: LOIS Amlodipine Besylate (Amlodipine Besylate 5 Mg Tab) 5 mg PO QPM HOLLY Stop: 03/28/24 20:59 Last Admin: 02/27/24 21:55 Dose: 5 mg Documented By: LOIS Cyanocobalamin (Cyanocobalamin (B-12) 500 Mcg Tablet) 1,000 mcg PO DAILY HOLLY Stop: 03/29/24 08:59 Last Admin: 02/28/24 08:11 Dose: 1,000 mcg Documented By: CS Acetaminophen (Ofirmev) 1,000 mg in 100 mls @ 400 mls/hr IV Q8H PRN PRN Reason: Pain Rating 1-3 & Pre PT Stop: 02/28/24 16:34 Last Infusion: 02/27/24 20:10 Dose: Infused Documented By: Admin: 02/27/24 19:52 Dose: 400 mls/hr Documented By: LOIS Dexamethasone 4 mg/ Syringe 1 mls @ 1 mls/min IV DAILY HOLLY Stop: 03/01/24 09:00 Last Admin: 02/28/24 08:07 Dose: 1 mls/min Documented By: CS Lactobacillus Acidophilus (Lactobacillus Acidophilus 1 Gm Pack) 1 packet PO DAILY HOLLY Stop: 03/29/24 08:59 Last Admin: 02/28/24 08:12 Dose: 1 packet Documented By: CS Losartan Potassium (Losartan Potassium 50 Mg Tab) 100 mg PO QAM HOLLY Stop: 03/29/24 08:59 Last Admin: 02/28/24 08:12 Dose: 100 mg Documented By: CS Polyethylene Glycol (Polyethylene (Miralax) 17 Gm Pack) 17 gm PO Q6 HOLLY Stop: 03/29/24 05:59 Last Admin: 02/28/24 05:52 Dose: 17 gm Documented By: LOIS Senna/Docusate Sodium (Docusate Sodium/Senna 50/8.6mg Tab) 2 tab PO HS HOLLY Stop: 03/28/24 20:59 Last Admin: 02/27/24 21:55 Dose: 2 tab Documented By: LOIS Vitamin D (Cholecalciferol 25 Mcg (1000 Units) Tab) 25 mcg PO QPM HOLLY Stop: 03/28/24 20:59 Last Admin: 02/27/24 21:55 Dose: 25 mcg Documented By: LOIS Discontinued Medications Bupivacaine HCl/Epinephrine Bitart (Bupivacaine/Epinephrine 0.25% 1:200,000 30 Ml Vial) Confirm Administered Dose 30 ml .ROUTE .STK-MED ONE Stop: 02/27/24 12:35 Last Admin: 02/27/24 13:20 Dose: 25 ml Documented By: GMB Cefazolin Sodium (Cefazolin 330 Mg/Ml 1 Gm Vial) Confirm Administered Dose 990 mg .ROUTE .STK-MED ONE Stop: 02/27/24 12:35 Last Admin: 02/27/24 13:20 Dose: 990 mg Documented By: GMB Celecoxib (Celebrex 200 Mg Cap) 200 mg PO PREOP HOLLY Stop: 02/27/24 18:00 Last Admin: 02/27/24 11:00 Dose: 200 mg Documented By: TDM Gabapentin (Gabapentin 300 Mg Cap) 300 mg PO PREOP HOLLY Stop: 02/27/24 18:00 Last Admin: 02/27/24 11:00 Dose: 300 mg Documented By: TDM Hydromorphone HCl (Hydromorphone Inj 1 Mg/Ml Syringe) 0.25 mg IV Q5M PRN PRN Reason: PACU Use Only-Pain Stop: 02/27/24 19:36 Last Admin: 02/27/24 15:00 Dose: 0.25 mg Documented By: Admin: 02/27/24 14:55 Dose: 0.25 mg Documented By: Admin: 02/27/24 14:50 Dose: 0.25 mg Documented By: Admin: 02/27/24 14:45 Dose: 0.25 mg Documented By: DS Lactated Ringer's (Lr) 1,000 mls @ 15 mls/hr IV .Q24H HOLLY Stop: 02/28/24 05:59 Last Infusion: 02/27/24 12:42 Dose: Infused Documented By: Admin: 02/27/24 11:00 Dose: 15 mls/hr Documented By: TDM Lactated Ringer's (Lr) 1,000 mls @ 60 mls/hr IV .[id number] HOLLY Stop: 02/27/24 22:39 Last Admin: 02/27/24 11:00 Dose: Not Given Documented By: TDM Cefazolin Sodium (Ancef 2000mg) 2,000 mg in 15 mls @ 3.75 mls/min IV PREOP HOLLY; Protocol Stop: 02/27/24 18:00 Last Admin: 02/27/24 12:44 Dose: 3.75 mls/min Documented By: GMB Lactated Ringer's (Lr) 1,000 mls @ 75 mls/hr IV .[id number] HOLLY Stop: 03/28/24 16:33 Last Infusion: 02/28/24 05:43 Dose: Infused Documented By: Infusion: 02/27/24 20:10 Dose: 75 mls/hr Documented By: Infusion: 02/27/24 19:52 Dose: 0 mls/hr Documented By: Admin: 02/27/24 17:02 Dose: 75 mls/hr Documented By: DM Cefazolin Sodium (Ancef 1000mg) 1,000 mg in 7.5 mls @ 2.5 mls/min IV Q8H HOLLY; Protocol Stop: 02/28/24 05:02 Last Admin: 02/28/24 05:53 Dose: 2.5 mls/min Documented By: Admin: 02/27/24 21:55 Dose: 2.5 mls/min Documented By: LOIS Miscellaneous ( Floseal Hemostatic Matrix 10ml) 10 ml TOP ONCE ONE Stop: 02/27/24 13:20 Last Admin: 02/27/24 14:15 Dose: 17 ml Documented By: IMANI
--- NOTE | 2024-02-28 09:23 | Orthopedic Progress Note ---
Date of Service February 28, 2024 Assessment & Plan (1) Neurogenic claudication due to lumbar spinal stenosis: Plan: At this time continue physical therapy monitor her ROVERTO output replete discharge home next few days. Admission and Anticipated Discharge Date Admission Date: February 27, 2024 Subjective Back pain controlled likely markedly improved Physical Exam Physical Exam: Patient is very comfortable. Is concerning to testing. Has been up and ambulating. Results & Data Vital Signs (Past 12 Hours) Vital Signs Temp Pulse Pulse Resp BP Pulse Ox O2 Del Method 02/28/24 08:06 76 123/71 02/28/24 07:59 36.6 C 70 20 119/72 94 Nasal Cannula 02/28/24 07:43 Nasal Cannula 02/28/24 03:00 36.8 C 98 H 16 107/64 93 Nasal Cannula 02/27/24 23:00 36.6 C 80 16 107/66 95 Nasal Cannula 02/27/24 21:50 Nasal Cannula O2 Flow Rate 02/28/24 08:06 02/28/24 07:59 2 02/28/24 07:43 2 02/28/24 03:00 2 02/27/24 23:00 2 02/27/24 21:50 2
[2024-02-28] MEDS ORDERED: ALBUTEROL 0.5% NEB SOLN 2.5 MG/0.5 ML VIAL NEB PRN (10:21)
--- NOTE | 2024-02-28 11:43 | XRay Report ---
XR chest 1V portable CLINICAL HISTORY: Requiring supplemental O2 post-op TECHNIQUE: Single frontal radiograph of the chest was obtained. Comparison: Comparison is made to chest radiograph 02/20/2024 FINDINGS: ACDF is seen. Calcified aortic knob is seen. Right lower lobe linear density is seen. Mild vascular c ongestion is seen. No evidence of pleural effusion or pneumothorax. IMPRESSION: 1. Right lower lung airspace density likely represents atelectasis. 2. Pulmonary vascular congestion. ACT 112: Negative or not required by law. Electronically signed by: Silvino Delgado M.D. 02/28/2024 11:42 AM
[2024-02-28] MEDS: FUROSEMIDE 40 MG/4 ML VIAL IV ONE (13:24)
[2024-02-29 06:48] LABS: Hematocrit (blood only) 32.4 % (37.0-47.0); Hemoglobin 10.6 g/dl (12.0-16.0); Mean Corpuscular Hemoglobin 30.1 pg (25.0-34.0); Mean Corpuscular Hgb Conc 32.7 g/dL (32.0-36.0); Mean Platelet Volume 9.4 fL (9.4-12.4); Platelet Count 209 K/uL (130-400); RDW Coefficient of Variation 13.6 % (11.5-14.5); RDW Standard Deviation 46.2 fL (36.4-46.3); Red Blood Count 3.52 M/uL (4.20-5.40); White Blood Count 11.37 K/ul (4.8-10.8)
[2024-02-29 07:03] VITALS: TEMP 97.7
[2024-02-29 07:13] LABS: BUN Creatinine Ratio 30.6 (10-20); Calcium 8.9 mg/dl (8.6-10.3); Creatinine Clr Calc Pharmacy 35.6 ml/min; Est GFR (African American) 54.6 ml/min; Est GFR (Non-African American) 47.1 ml/min; Magnesium 1.9 mg/dl (1.7-2.4); Phosphorus 2.9 mg/dl (2.5-4.9); Potassium 4.4 mmol/L (3.5-5.1)
[2024-02-29 07:29] LABS: Ferritin 40.6 ng/ml (8-388)
[2024-02-29 07:31] LABS: Folate (Folic Acid),Ser orPlas 7.66 ng/ml (>5.38)
--- NOTE | 2024-02-29 08:06 | Discharge Summary ---
Date of Service February 29, 2024 Admission HPI Per Admitting Provider This is an 84-year-old female well-known to me the presents with chronic persistent back and leg pain after failed extensive course of nonoperative care is here for surgical intervention. Principal Diagnosis Lumbar spinal stenosis with neurogenic claudication Discharge Data Allergies Allergy/AdvReac Type Severity Reaction Status Date / Time codeine Allergy Severe RESP Verified 02/27/24 10:54 DISTRESS HIVES Iodinated Contrast Media Allergy Unknown tongue/lip Verified 02/28/24 07:07 numbness (IV CONTRAST DYE) tramadol Allergy Unknown Itching Verified 02/27/24 10:54 Consultations 02/27/24 16:34 Consult Hospitalist Routine Procedures Performed Operation Date: 02/27/24 12:10 Actual Procedures p L3-L5 Decompression and Fusion, Spinal Cord Monitoring(Not Applicable) - Juan Patel DO Ordered Studies 02/27/24 12:10 FL lumbar spine 2-3V Routine Hospital Course (1) Neurogenic claudication due to lumbar spinal stenosis: Patient underwent lumbar compression patient tolerates well second orthopedic for postoperative. Postoperative she has progressed appropriately. Extra strength testing. ROVERTO drain decreasing. Pain well-controlled. Subcu discharge home. Discharge orders instructions from the chart for further review. Total Time Total Time Spent Total Time Spent (In Minutes): 20 minutes Discharge Plan Discharge Items Patient Disposition: Home - Self-Care Reason For Visit: Lumbar Region Spinal Stenosis with Neurogenic [place] Discharge Diagnosis: Lumbar spinal stenosis with neurogenic claudication Activity: As commented below Non-emergency contact: Primary Care Provider Call non-emergency contact if: you have any medication questions Follow-up/Referrals: Alfred Kang DO [Primary Care Provider] - Diet: Regular Addtl Attending Provider Instructions: ACTIVITY RECOMMENDATIONS: SELF CARE INSTRUCTIONS AFTER THORACIC/LUMBAR FUSIONS 1. You may walk to your tolerance. It is good exercise for your legs and back. Expect some back and intermittent leg aches and pains. 2. You may perform "counter-top" level activities (make a sandwich, annmarie with a project, etc.). 3. No bending or lifting of more than 10 pounds or back twisting of any nature (roll like a log when turning in bed). 4. You may ride in a car for 20-30 minutes at a time. No driving until after your first visit with your doctor. 5. Frequent changes of position and restricting sitting to 30 minutes at a time will help limit the amount of back spasms and stiffness you may experience. 6. You may discontinue the use of ambulatory aids (cane, crutches, etc.) once your strength and confidence allow. 7. You may marine reporter the shower and let water strike your incision when you arrive home at least once daily. Do not take a tub bath, sit in a hot tub or go into a swimming pool until after your first recheck in the office. SPECIAL CARE INSTRUCTIONS: VERY IMPORTANT TO READ AND REVIEW A. Your surgical incision has been closed with a cosmetic suture under the skin that will dissolve in about 6 weeks. In 14 days, you can use a pair of clean scissors and cut the suture that is left outside of the skin at the ends of your incision. 1. The small skin tapes can be removed 7 days after surgery if they have not fallen off by that point. 2. You may keep the wound open to air as much as possible to promote healing after post-op day number 5 unless told otherwise by your doctor. 3. If you think the wound looks like it is becoming infected (redness or worsening drainage) and/or you are experiencing fever, chill or worsening back pain and muscle spasms, contact the office so that we may evaluate you as soon as possible. B. Complications are uncommon, but please contact us if you have any signs or symptoms of: 1. wound infection (fever higher than 102.5 degrees F, redness, separation of wound, drainage, or increasing pain from the incision) 2. blood clots in legs (pain, swelling, redness and warmth in legs) 3. urinary tract infection (fever higher than 102.5 degrees F, burning upon urination or increased frequency of urination) 4. nerve problems (inability to walk on your toes or heels, numbness, loss of bowel or bladder control) 5. any other symptoms that concern you C. Please call the office at if you have any concerns or questions about your operation or recovery. D. No smoking! Smoking drastically decreases the chance of a solid fusion. E. Do not take any anti-inflammatory medications (Indocin, Advil, Motrin, Aspirin, Naprosyn, etc.) as these may inhibit the chance of a solid fusion. Tylenol is okay to take for pain. MANAGING PAIN AFTER SPINAL SURGERY 1. Narcotic medication is intended for short-term use and will be provided for surgical pain. Surgical pain usually lasts for a period of 4-6 weeks. Narcotic medication includes Percocet, Vicodin, Darvocet, Tylenol #3 or Lortab. 2. Longer-term pain is more appropriately treated with non-narcotic medication such as Tylenol ES. 3. Muscle spasm is not appropriately treated with narcotics. Muscle relaxers such as Soma, Flexeril or Skelaxin can be used along with Tylenol ES. 4. Remember that we all live with some "aches and pains". This is not unusual or uncommon after an injury or as we get older. a. Back pain is expected and may include muscle spasms for 4 to 6 weeks after surgery. The pain should gradually improve. If the pain worsens for no apparent reason, please contact the office. b. Intermittent leg pain may also be experienced and should not be concerned about unless it worsens for no apparent reason. If so, please contact the office. 5. We will provide appropriate medication within the normal guidelines of their prescribed use. We will also be very cautious and aware of potential abuse and extended duration of patients' medication needs. a. Pain medications are for your comfort and to assist with sleep and rest so that the tissue can heal. They are not provided in order to return to normal activity and should not be used through the day. To do so or worsening pain at night can result from ongoing tissue damage and development of tolerance to the prescribed medicine. 6. Please allow 2-3 days to process refills. Prescriptions will not be mailed but must be picked up at the office. FOLLOW UP VISIT: Keep your scheduled follow-up appointment. Any questions, please call the office at . Pending Studies at Discharge: No Stand-Alone Forms: [employer] ([employer]), Smoking Cessation Medications and DC Order Prescriptions: New hydrocodone-acetaminophen 5-325 mg tablet 1 tab PO Q6H PRN (Reason: pain) Qty: 30 0RF Continued acetaminophen 325 mg Tablet 325 mg PO QID PRN (Reason: Pain) cyanocobalamin (vitamin B-12) [Vitamin B-12] 1,000 mcg Tablet 1,000 mcg PO DAILY amlodipine 5 mg Tablet 5 mg PO QPM olmesartan 40 mg Tablet 40 mg PO QAM Probiotic 3 billion cell Capsule 3,000 mmu cells PO DAILY Rx Instructions: administer with a meal albuterol sulfate 90 mcg/actuation Hfa Aerosol Inhaler 2 puff INHALATION QID PRN (Reason: sob) cholecalciferol (vitamin D3) [Vitamin D3] 25 mcg (1,000 unit) Tablet 25 mcg PO QPM Discharge Orders: Discharge Order (Routine); Ordered 02/29/24 Ordered By: Juan Patel Admission Data Admit Date/Time: 02/27/24 14:32 Attending Provider: Juan Patel Admit Provider: Juan Patel Primary Care Provider: Alfred Kang Other Providers: Rosalba King; Phillip Connolly
[2024-02-29 08:37] VITALS: BP 128/82
[2024-02-29] MEDS: FERROUS SULFATE 325 MG TAB PO SCH (11:28)
[2024-02-29 11:51] VITALS: PULSE 77; RESP 16; O2SAT 87
--- NOTE | 2024-02-29 11:53 | Hospitalist Progress Note ---
<Statement entered by Phillip Connolly DO - 02/29/24 14:44> I have seen and examined the patient and have discussed the case with the provider above. I have reviewed the advanced practitioner's documentation, and I agree with, and take responsibility for that plan of care. 12 minutes spent at bedside. Patient denies any shortness of breath. No chest pain. Patient or stands may need to go home with oxygen. 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 Patel on 02/26. Neurogenic Claudication 2/2 Lumbar Spinal Stenosis S/P Lumbar Spine Operation POD#2 s/p L3-L5 decompression & fusion with Dr. Patel. EBL: 50mL & Pre-Operative Hgb: 13.5 [02/20/24] Hgb downtrended to 11.1 (02/27); 10.6 today Per ortho for pain control, wound care, anticoagulation and activities. Continue incentive spirometry, PT/OT when appropriate as per ortho team. Monitor H/H for acute blood loss anemia and transfuse blood products PRN. Anemia: Acute Likely secondary to surgical intervention Fe+ 22, Transferrin 8% Ganzon[place] calculation 662mg iron deficient; will order daily Ferrous Sulfate 325 mg PO daily No indication for Venofer given post op state Use of Supplemental Oxygen Support Chronic Obstructive Pulmonary Disease Acute CXR on 02/27 right-sided atelectasis and mild pulmonary vascular congestion Received Lasix 40 mg x1 on 02/27; increased diuresis overnight; nursing did not do I/O. No O2 prior to admit non-smoker but has been exposed to second hand smoke Encouraged incentive spirometer use Q1h Occasionally uses albuterol inhaler at home, but is not on any other respiratory meds. Pt has gel nails and unsure appropriate tracking on forehead. Asked nursing to place patient on continuous bedside monitor to look at tracing; placed order for 2-step O2 Gave Script to case management; per RT pt qualifies for Home O2 2L at rest and with ambulation HTN chronic BP has remained stable post-operatively, can continue home medications. History of Atrial Septal Aneurysm Chronic, stable. ECHO from 03/05/2019 showed the following: Grade 1 diastolic dysfunction, EF of 50 to 54%, atrial septal aneurysm noted, interarterial septum is intact without interarterial shunt, atrial septal defect or patent foramen ovale. Disposition: DVT Prophylaxis: SCDs/TEDs;per primary team Code Status: FULL CODE PCP: Alfred Kang, DO Disposition: Admitted in Med/Surg * Patient mentioned yesterday that she would like to meet with case management to discuss the potential of obtaining home health services for PT and dressing changes when she is discharged. She lives at home with her . However, he is a trucker hand and is gone for long periods of time (sometimes weeks). This makes her very anxious to be at home alone with the concern of potentially not being able to care for herself appropriately. She is against the idea of an inpatient rehabilitation placement upon discharge - she would like to go home. We will continue to follow the patient with you during their hospital stay. You can reach a [facility] via [employer]. Patient seen in collaboration with Dr. Connolly. Please see addendum. I spent a total of 46 minutes coordinating, documenting, and providing care for this patient excluding time spent in the performance of separately billed services. This included personally reviewing all current laboratories and imaging studies, medical reconciliation, outpatient chart review and discussion with specialists. This chart was completed in part utilizing Speech Voice Recognition Software. Grammatical errors, random word insertions, pronoun errors, and incomplete sentences are an occasional consequence of this system due to software limitations, ambient noise, and hardware issues. Any formal questions or concerns about the content, text, or information contained within the body of this dictation should be directly addressed to the provider for clarification. Admission and Anticipated Discharge Date Admission Date: February 27, 2024 Subjective Patient seen and examined at bedside as she was working with physican therapy Pt denies GLOVER, dizziness, SOB, chest pain, N/V/D, She is requiring 2L of supplemental oxygen support post-operatively. She was placed on RA this AM but when working with PT dropped to 88%. Does not feel SOB with desaturations Patient was not on oxygen support at home prior to arrival. Martha reports that the patient's oxygen saturation dips down to 88% today and up to 92% on 2LNC Fe+ level 22 this AM; placed on Ferrous Sulfate Diuresed well with Lasix yesterday; does not seem to be a fluid issue Reports she does have a PMH of mild COPD 2-step order placed and discussed with CM; likely DC by surgery team today Review of Systems Review of Systems: Neuro: (-) Falls, trauma, slurred speech HEENT: (-) GLOVER, dizziness, dysphagia, visual or auditory changes CV: (-) CP, palpitations, swelling Resp: (-) SOB; does not report feeling SOB with desaturations GI: (-) appetite changes, N/V/D, bowel changes : (-) urinary changes Skin: (-) rashes Psych: (-) anxiety, depression Physical Exam Physical Exam: Neuro: AAOx4, PERRLA, no aphagia, memory changes, CNII-XII grossly intact HEENT: head normocephalic, moist mucus membranes CV: S1/S2, (-) M/G/R, (-) edema, cap refill < 3 seconds Resp: Lungs CTA in all stone. On RA GI: Abdomen S/NT/ND, Ax4 bowel sounds, (-) CVA tenderness Musculoskeletal: 5/5 B/L UE strength, 5/5 B/L LE strength. No gait disturbance Skin: (-) rashes , (-) erythema. lumbar surgical dressing C/D/I Psych: euthymic mood Results & Data Results & Data Vital Signs (Past 12 Hours) Vital Signs Temp Pulse Resp BP Pulse Ox O2 Del Method O2 Flow Rate 02/29/24 09:42 Nasal Cannula 2 02/29/24 08:36 36.5 C 82 17 128/82 96 Room Air 02/29/24 07:02 36.5 C 68 16 128/72 93 Nasal Cannula 2.0 Laboratory Results Short CBC 02/29/24 Range/Units 05:45 WBC 11.37 H (4.8-10.8) K/ul Hgb 10.6 L (12.0-16.0) g/dl Hct 32.4 L (37.0-47.0) % Plt Count 209 (130-400) K/uL BMP 02/29/24 05:45 Sodium 140 Potassium 4.4 Chloride 105 Carbon Dioxide 30 BUN 33 H Creatinine 1.08 Glucose 94 Calcium 8.9
--- NOTE | 2024-03-04 10:52 | Coding Query ---
ANEMIA To promote full compliance with coding requirements relating to patient care, physician participation is requested in all cases of crm administrator uncertainty. Please assist us with the question(s) below: Coding Question(s): The record reflects the following clinical findings: "Anemia: Acute Likely secondary to surgical intervention Fe+ 22, Transferrin 8% Gan[place]i calculation 662mg iron deficient; will order daily Ferrous Sulfate 325 mg PO daily No indication for Venofer given post op state". If these findings are indicative of anemia, please specify the known or suspected type by placing an "X" within the parenthesis (x). If other, please document type. Examples are: (x) Acute blood loss anemia ( ) Acute Postoperative blood loss anemia (x ) Acute postoperative anemia due to dilutional fluids ( ) Chronic blood loss anemia ( ) Anemia of chronic disease ( ) Aplastic anemia ( ) Anemia due to renal disease ( ) Anemia in neoplastic disease (x ) Iron deficient anemia ( x) Anemia, unspecified or other ( ) Other: (please specify) Thank you Laurie PLAZA
== END 2024-02-29 15:20 | disposition home or self-care (01) | DRG 454 ==
LOC: ASU 10:23 → 3E 14:32